=== PATIENT | female | born 1985 | race Caucasian/White ===

== ENCOUNTER 2019-06-08 18:31 | Observation (INO) ==
--- NOTE | 2019-06-08 18:37 | Emergency Department Note ---
Disposition Clinical Impression: Pyelonephritis Disposition: Admitted As Inpatient Condition: Good Time of Disposition: 22:39 General Adult HPI - General Stated complaint: Abdominal Pain Time Seen by Provider: 06/08/19 18:45 Source: patient Mode of arrival: ambulatory Limitations: no limitations Nursing Notes Reviewed: Yes Vital Signs Reviewed: Yes - History of Present Illness HPI Narrative: 34-year-old female presents with fever and abdominal pain for last 3 days. Significant past history of recurrent UTIs, pyelonephritis, gonorrhea, chlamydia. Previous episodes treated with antibiotics Omnicef, Flagyl, Keflex. She also admits to nausea without vomiting, decreased by mouth intake, flank pain, malaise, dizziness. She took [id number]-[id number] medications but that provided no relief. She denied any chest pain, dyspnea, cough, sore throat. Pt Subjective Complaint: Abdominal pain and fever Onset (ago): day(s) (3) Location: abdomen Radiation: back Pain Severity: moderate Pain Scale: 8 Quality: burning Consistency: intermittent Improves with: movement Worsens with: nothing Associated symptoms: Reports: fever/chills, headaches, loss of appetite, nausea/vomiting Treatments Prior to Arrival: NSAID - Related Data Home Medications Medication Instructions Recorded Confirmed Buprenorphine HCl/Naloxone HCl 1 film SL DAILY 06/08/19 06/08/19 [Suboxone 8 mg-2 mg Sl Film] Paroxetine HCl [Paxil] 40 mg PO DAILY 06/08/19 06/08/19 Wellbutrin 06/08/19 06/08/19 Allergies Allergy/AdvReac Type Severity Reaction Status Date / Time No Known Allergies Allergy Verified 04/21/19 19:23 Constitutional: Reports: fever, chills Eyes: Denies: eye pain ENT ED: Denies: ear pain Cardiovascular: Denies: chest pain, palpitations, dyspnea on exertion Respiratory: Reports: cough, dyspnea Gastrointestinal: Reports: abdominal pain, nausea. Denies: vomiting Genitourinary: Reports: as per HPI, dysuria Musculoskeletal: Reports: back pain Integumentary: Denies: rash Neurological: Reports: headache Psychiatric: Reports: anxiety Endocrine: Reports: fatigue Past Medical History - Past Medical History Attestation: Yes The following information was validated with the patient. Source: patient Medical history: Reports: no medical history Surgical history: Reports: non-contributory - Social History Smoking Status: Current every day smoker Smokeless Tobacco Status: No Alcohol use: Reports: none Drug use: Reports: none Physical Exam - General Limitations: no limitations General appearance: alert, anxious, in distress - Head Head exam: atraumatic, normocephalic, normal inspection - Eye Eye exam: Present: normal appearance, EOMI - Expanded Eye Exam Pupils: Left: reactive - ENT ENT exam: normal exam, normal oropharynx, mucous membranes moist - Expanded ENT Exam External ear exam: Present: normal external inspection Nose exam: negative: rhinorrhea Mouth exam: Present: normal external inspection Teeth exam: Present: normal inspection Throat exam: Present: normal inspection - Neck Neck exam: Present: normal inspection, full ROM, trachea midline - Chest Chest inspection: Present: normal inspection, symmetric chest wall rise - Respiratory Respiratory exam: Present: normal lung sounds bilaterally - Cardiovascular Cardiovascular exam: Present: normal rhythm, tachycardia, +S1, +S2 - Abdominal Exam Abdominal exam: Present: tenderness. Absent: distention, guarding, rebound, rigidity, Boyd's sign, Rovsing's sign Abdominal tenderness: Present: diffuse - Extremities Exam Extremities exam: Present: normal inspection, full ROM. Absent: tenderness, pedal edema - Expanded Upper Extremity Exam Shoulder exam: Present: normal inspection, full ROM Arm exam: Present: normal inspection, full ROM Elbow exam: Present: normal inspection, full ROM Forearm/Wrist exam: Present: normal inspection, full ROM Hand exam: Present: normal inspection, full ROM Vascular exam: Normal: capillary refill, radial pulse - Expanded Lower Extremity Exam Hip/Pelvis exam: Present: normal inspection, full ROM Upper leg exam: Present: normal inspection, full ROM Knee exam: Present: normal inspection, full ROM Lower leg exam: Present: normal inspection, full ROM Ankle exam: Present: normal inspection, full ROM Foot/toe exam: Present: normal inspection, full ROM Neurovascular/Tendon exam: Absent: motor deficit, sensory deficit, tendon deficit - Back Exam Back exam: Present: normal inspection, full ROM, CVA tenderness (R), CVA tenderness (L). Absent: tenderness - Neurological Exam Neurological exam: Present: alert, oriented X3 - Expanded Neurological Exam Patient oriented to: Present: person, place, time Coma Scale Eye Opening: Spontaneous Coma Scale Motor Response: Obeys Commands Coma Scale Verbal Response: Oriented Coma Scale Total: 15 - Psychiatric Psychiatric exam: Present: normal affect, normal mood - Skin Skin exam: Present: warm, dry, intact, normal color Course Course Narrative: Patient presents with symptoms concerning for sepsis. She is tachycardic, leukocytosis, UA significant for infection. CT abdomen without contrast confirms polynephritis. Patient continues to be hypotensive after IV ceftriaxone. She does report improvement of symptoms and would prefer to go home. - Reevaluation(s) Reevaluation #1: Patient continues to have a fever of 101F. I will give her a dose of Tylenol. She reports her nausea and overall symptoms have improved. However, vital signs demonstrate hypotension, tachycardia, fever. Patient continues to state that she would rather go home and treat this with oral antibiotics with PCP follow up. I advised her due to symptoms concerning for sepsis, it is highly mu mmended for her to be admitted. Patient expresses understanding and is agreeable. She is to be admitted to inpatient service. Time: 21:26 - Consultations Consultation #1: Admitting hospitalist. Accepted admission. Time: 22:30 Vital Signs Temperature 103.2 F H 06/08/19 18:36 Pulse Rate 115 06/08/19 18:36 Respiratory Rate 20 06/08/19 18:36 Blood Pressure 100/54 06/08/19 18:36 O2 Sat by Pulse Oximetry 99 06/08/19 18:36 Temperature 99.9 F H 06/08/19 21:19 Pulse Rate 100 06/08/19 20:37 Respiratory Rate 23 06/08/19 22:57 Blood Pressure 77/56 06/08/19 22:57 O2 Sat by Pulse Oximetry 97 06/08/19 19:24 Oxygen Delivery Oxygen Delivery Room Air Medical Decision Making - [facility] Narrative Medical decision making narrative: 34-year-old presents with symptoms of fever, nausea, vomiting, abdominal pain. Blood work and CT of the abdomen without contrast consistent for pyelonephritis. Patient received dose of IV Rocephin but continued to have fever of 101F and hypotensive. Patient to be admitted for sepsis 2/2 pyelonephritis. Spoke with admitting hospitalist and has been accepted to inpatient medicine. - Medical Records Medical records reviewed: Yes I reviewed the patient's medical records. - Lab Data Lab results reviewed: Yes I reviewed the patient's lab results. Result diagrams: 06/08/19 18:54 06/08/19 18:58 Lab Results 06/08/19 06/08/1919 Range/Units 18:54 18:57 18:58 WBC 11.2 H (4.3-11.1) K/mcL RBC 3.79 L (3.82-4.97) M/mcL Hgb 12.0 (11.5-15.4) g/dL Hct 36.5 (35.3-44.9) % MCV 96.3 (83.0-100.0) fL MCH 31.7 (28.0-33.3) pg MCHC 32.9 (31.6-35.5) g/dL RDW 12.8 (11.5-14.5) % Plt Count 134 L (140-400) K/mcL MPV 10.1 (9.4-12.4) fL Immature Gran % 0.4 (0-4) % Seg Neutrophils % 79.4 % Lymphocytes % 12.7 % Monocytes % 5.7 % Eosinophils % 1.5 % Basophils % 0.3 % Neutrophils # 8.9 (1.6-8.9) K/mcL Lymphocytes # 1.4 (0.6-4.6) K/mcL Monocytes # 0.6 (0.0-1.3) K/mcL Eosinophils # 0.2 (0.0-0.6) K/mcL Basophils # 0.0 (0.0-0.2) K/mcL PT 11.6 (9.4-12.1) Seconds INR 1.0 APTT 27.5 (26.0-36.0) Seconds Sodium (136-145) mEq/L Potassium (3.5-5.1) mEq/L Chloride (98-107) mEq/L Carbon Dioxide (23-29) mEq/L BUN (6-20) mg/dL Creatinine (0.60-1.20) mg/dL Est GFR ( Amer) (> 60) Est GFR (Non-Af Amer) (> 60) BUN/Creatinine Ratio (6-26) Glucose (70-105) mg/dL Calculated Osmolality (280-300) Lactic Acid 1.3 (0.5-2.2) mmol/L Calcium (8.6-10.3) mg/dL Phosphorus (2.7-4.5) mg/dL Magnesium (1.6-2.6) mg/dL Total Bilirubin (0.3-1.0) mg/dL Direct Bilirubin (0.0-0.2) mg/dL Indirect Bilirubin (0.0-1.2) mg/dL AST (13-39) Units/L ALT (7-52) Units/L Alkaline Phosphatase (34-104) Units/L Troponin I (< 0.04) ng/mL Serum Total Protein (6.4-8.9) g/dL Albumin (3.5-5.7) g/dL Globulin (2.4-3.5) g/dL Albumin/Globulin Ratio (1.1-2.2) Lipase (11-82) Units/L Urine Color (Yellow) Urine Clarity (Clear) Urine pH (5.0-8.0) pH Units Ur Specific [place] (1.010-1.025) Urine Protein (Neg-Trace) mg/dL Urine Glucose (UA) (Normal) mg/dL Urine Ketones (Negative) mg/dL Urine Blood (Negative) Urine Nitrite (Negative) Urine Bilirubin (Negative) Urine Urobilinogen (Normal) mg/dL Ur Leukocyte Esterase (Negative) Urine Microscopic RBC (0-3) per hpf Urine Microscopic WBC (0-3) per hpf Ur Squamous Epith Cells (None-Few) per lpf Urine Bacteria (None-Few) per hpf Hyaline Casts (None-Few) per lpf Ur Culture Indicated? (NO) 06/08/19 06/08/19 Range/Units 18:58 19:30 WBC (4.3-11.1) K/mcL RBC (3.82-4.97) M/mcL Hgb (11.5-15.4) g/dL Hct (35.3-44.9) % MCV (83.0-100.0) fL MCH (28.0-33.3) pg MCHC (31.6-35.5) g/dL RDW (11.5-14.5) % Plt Count (140-400) K/mcL MPV (9.4-12.4) fL Immature Gran % (0-4) % Seg Neutrophils % % Lymphocytes % % Monocytes % % Eosinophils % % Basophils % % Neutrophils # (1.6-8.9) K/mcL Lymphocytes # (0.6-4.6) K/mcL Monocytes # (0.0-1.3) K/mcL Eosinophils # (0.0-0.6) K/mcL Basophils # (0.0-0.2) K/mcL PT (9.4-12.1) Seconds INR APTT (26.0-36.0) Seconds Sodium 137 (136-145) mEq/L Potassium 3.3 L (3.5-5.1) mEq/L Chloride 103 (98-107) mEq/L Carbon Dioxide 26 (23-29) mEq/L BUN 13 (6-20) mg/dL Creatinine 0.67 (0.60-1.20) mg/dL Est GFR ( Amer) > 60 (> 60) Est GFR (Non-Af Amer) > 60 (> 60) BUN/Creatinine Ratio 19 (6-26) Glucose 91 (70-105) mg/dL Calculated Osmolality 284 (280-300) Lactic Acid (0.5-2.2) mmol/L Calcium 8.4 L (8.6-10.3) mg/dL Phosphorus 2.3 L (2.7-4.5) mg/dL Magnesium 1.6 (1.6-2.6) mg/dL Total Bilirubin 0.4 (0.3-1.0) mg/dL Direct Bilirubin 0.1 (0.0-0.2) mg/dL Indirect Bilirubin 0.3 (0.0-1.2) mg/dL AST 19 (13-39) Units/L ALT 17 (7-52) Units/L Alkaline Phosphatase 55 (34-104) Units/L Troponin I < 0.03 (< 0.04) ng/mL Serum Total Protein 6.3 L (6.4-8.9) g/dL Albumin 3.7 (3.5-5.7) g/dL Globulin 2.6 (2.4-3.5) g/dL Albumin/Globulin Ratio 1.4 (1.1-2.2) Lipase 9 L (11-82) Units/L Urine Color Yellow (Yellow) Urine Clarity Turbid A (Clear) Urine pH 5.5 (5.0-8.0) pH Units Ur Specific [place] 1.022 (1.010-1.025) Urine Protein 100 H (Neg-Trace) mg/dL Urine Glucose (UA) Normal (Normal) mg/dL Urine Ketones Negative (Negative) mg/dL Urine Blood Large H (Negative) Urine Nitrite Positive A (Negative) Urine Bilirubin Negative (Negative) Urine Urobilinogen Normal (Normal) mg/dL Ur Leukocyte Esterase Large H (Negative) Urine Microscopic RBC 5-15 H (0-3) per hpf Urine Microscopic WBC TNTC H (0-3) per hpf Ur Squamous Epith Cells Many H (None-Few) per lpf Urine Bacteria Many H (None-Few) per hpf Hyaline Casts None Seen (None-Few) per lpf Ur Culture Indicated? YES A (NO) - Radiology Data Radiology results reviewed: Yes I reviewed the patient's radiology results. - EKG Data EKG #1 EKG attestation: Yes I reviewed and interpreted this EKG. EKG results narrative: Sinus tachycardia heart rate 114, QT 277, right atrial enlargement EKG shows normal: sinus rhythm Rate: tachycardia When compared to previous EKG there are: no significant changes
[2019-06-08] MEDS ORDERED: 0.9 % Sodium Chloride 1,000 ML IVC ONE ×3 (18:54→23:33)
[2019-06-08] MEDS ORDERED: Ketorolac 15 MG/ML VIAL IVP ONE (18:57)
[2019-06-08 19:20] LABS: Basophils % 0.3 %; Eosinophils # 0.2 K/mcL (0.0-0.6); Eosinophils % 1.5 %; Hematocrit 36.5 % (35.3-44.9); Immature Granulocytes % 0.4 % (0-4); Lymphocytes # 1.4 K/mcL (0.6-4.6); Lymphocytes % 12.7 %; Mean Corpuscular HGB Conc 32.9 g/dL (31.6-35.5); Mean Corpuscular Hemoglobin 31.7 pg (28.0-33.3); Mean Corpuscular Volume 96.3 fL (83.0-100.0); Mean Platelet Volume 10.1 fL (9.4-12.4); Monocytes # 0.6 K/mcL (0.0-1.3); Monocytes % 5.7 %; Neutrophils # 8.9 K/mcL (1.6-8.9); Platelet Count 134 K/mcL (140-400); Red Blood Count 3.79 M/mcL (3.82-4.97); Red Cell Distribution Width 12.8 % (11.5-14.5); Segmented Neutrophils % 79.4 %; White Blood Count 11.2 K/mcL (4.3-11.1)
[2019-06-08 19:27] LABS: Prothrombin Time 11.6 Seconds (9.4-12.1)
[2019-06-08 19:30] LABS: Activated Partial Thrombo Time 27.5 Seconds (26.0-36.0)
[2019-06-08] MEDS ORDERED: Ondansetron 4 MG/2 ML VIAL IVP ONE (19:32)
[2019-06-08 19:42] LABS: Alanine Aminotransferase 17 Units/L (7-52); Albumin 3.7 g/dL (3.5-5.7); Albumin/Globulin Ratio 1.4 (1.1-2.2); Alkaline Phosphatase 55 Units/L (34-104); Aspartate Amino Transferase 19 Units/L (13-39); BUN/Creatinine Ratio 19 (6-26); Bilirubin,Direct 0.1 mg/dL (0.0-0.2); Bilirubin,Indirect 0.3 mg/dL (0.0-1.2); Bilirubin,Total 0.4 mg/dL (0.3-1.0); Blood Urea Nitrogen 13 mg/dL (6-20); Calcium 8.4 mg/dL (8.6-10.3); Carbon Dioxide 26 mEq/L (23-29); Chloride 103 mEq/L (98-107); Globulin 2.6 g/dL (2.4-3.5); Glucose 91 mg/dL (70-105); Lipase 9 Units/L (11-82); Magnesium 1.6 mg/dL (1.6-2.6); Osmolality,Calculated 284 (280-300); Phosphorous 2.3 mg/dL (2.7-4.5); Potassium 3.3 mEq/L (3.5-5.1); Sodium 137 mEq/L (136-145); Total Protein 6.3 g/dL (6.4-8.9); Troponin I < 0.03 ng/mL (< 0.04); eGFR For African Americans > 60 (> 60); eGFR For Non-African Americans > 60 (> 60)
[2019-06-08 19:49] LABS: Bilirubin,Urine Negative (Negative); Blood,Urine Large (Negative); Clarity,Urine Turbid (Clear); Color,Urine Yellow (Yellow); Glucose,Urine (UA) Normal (Normal); Ketones,Urine Negative (Negative); Leukocyte Esterase,Urine Large (Negative); Nitrite,Urine Positive (Negative); PH,Urine 5.5 pH Units (5.0-8.0); Protein,Urine 100 mg/dL (Neg-Trace); Specific Gravity,Urine 1.022 (1.010-1.025); Urobilinogen,Urine Normal (Normal)
[2019-06-08 19:53] LABS: Bacteria,Urine Many per hpf (None-Few); Hyaline Casts,Urine None Seen per lpf (None-Few); Squamous Epithelial Cell,Urine Many per lpf (None-Few); WBC,Urine TNTC per hpf (0-3)
[2019-06-08] MEDS ORDERED: cefTRIAXone 1,000 MG in Water for inj. (sterile) 10 ML IVP ONE (20:06)
--- NOTE | 2019-06-08 20:17 | Emergency Department Note ---
Disposition Clinical Impression: Pyelonephritis Disposition: Admitted As Inpatient Condition: Good Time of Disposition: 22:39 General Adult HPI - General Chief complaint: ED Abdominal Pain Stated complaint: Abdominal Pain Time Seen by Provider: 06/08/19 18:45 Source: patient Mode of arrival: ambulatory Limitations: no limitations - History of Present Illness Pain Scale: 10 - Related Data Home Medications Medication Instructions Recorded Confirmed Bupropion HCl [Wellbutrin Xl] 300 mg PO DAILY 06/08/19 06/09/19 Paroxetine HCl [Paxil] 40 mg PO DAILY 06/08/19 06/08/19 Buprenorphine HCl/Naloxone HCl 2 tab SL DAILY 06/09/19 06/09/19 [Buprenorphin-Naloxon 8-2 mg Sl] Allergies Allergy/AdvReac Type Severity Reaction Status Date / Time No Known Allergies Allergy Verified 06/09/19 13:40 Past Medical History - Past Medical History Medical history: Reports: no medical history Surgical history: Reports: non-contributory Psychiatric history: Reports: no psych history - Social History Smoking Status: Current every day smoker Smokeless Tobacco Status: No Alcohol use: Reports: none Drug use: Reports: none Physical Exam - General Limitations: no limitations General appearance: alert, in no apparent distress Course Vital Signs Temperature 103.2 F H 06/08/19 18:36 Pulse Rate 115 06/08/19 18:36 Respiratory Rate 20 06/08/19 18:36 Blood Pressure 100/54 06/08/19 18:36 O2 Sat by Pulse Oximetry 99 06/08/19 18:36 Temperature 98.7 F 06/11/19 04:30 Pulse Rate 83 06/11/19 04:30 Respiratory Rate 15 06/11/19 04:30 Blood Pressure 111/79 06/11/19 04:30 O2 Sat by Pulse Oximetry 97 06/11/19 04:30 Oxygen Delivery Oxygen Delivery Room Air Medical Decision Making - Lab Data Result diagrams: 06/10/19 06:03 06/10/19 06:03 Lab Results 06/08/19 06/08/19 06/08/19 Range/Units 18:54 18:57 18:58 WBC 11.2 H (4.3-11.1) K/mcL RBC 3.79 L (3.82-4.97) M/mcL Hgb 12.0 (11.5-15.4) g/dL Hct 36.5 (35.3-44.9) % MCV 96.3 (83.0-100.0) fL MCH 31.7 (28.0-33.3) pg MCHC 32.9 (31.6-35.5) g/dL RDW 12.8 (11.5-14.5) % Plt Count 134 L (140-400) K/mcL MPV 10.1 (9.4-12.4) fL Immature Gran % 0.4 (0-4) % Seg Neutrophils % 79.4 % Lymphocytes % 12.7 % Monocytes % 5.7 % Eosinophils % 1.5 % Basophils % 0.3 % Neutrophils # 8.9 (1.6-8.9) K/mcL Lymphocytes # 1.4 (0.6-4.6) K/mcL Monocytes # 0.6 (0.0-1.3) K/mcL Eosinophils # 0.2 (0.0-0.6) K/mcL Basophils # 0.0 (0.0-0.2) K/mcL PT 11.6 (9.4-12.1) Seconds INR 1.0 APTT 27.5 (26.0-36.0) Seconds Sodium (136-145) mEq/L Potassium (3.5-5.1) mEq/L Chloride (98-107) mEq/L Carbon Dioxide (23-29) mEq/L BUN (6-20) mg/dL Creatinine (0.60-1.20) mg/dL Est GFR ( Amer) (> 60) Est GFR (Non-Af Amer) (> 60) BUN/Creatinine Ratio (6-26) Glucose (70-105) mg/dL Calculated Osmolality (280-300) Lactic Acid 1.3 (0.5-2.2) mmol/L Calcium (8.6-10.3) mg/dL Phosphorus (2.7-4.5) mg/dL Magnesium (1.6-2.6) mg/dL Total Bilirubin (0.3-1.0) mg/dL Direct Bilirubin (0.0-0.2) mg/dL Indirect Bilirubin (0.0-1.2) mg/dL AST (13-39) Units/L ALT (7-52) Units/L Alkaline Phosphatase (34-104) Units/L Troponin I (< 0.04) ng/mL Serum Total Protein (6.4-8.9) g/dL Albumin (3.5-5.7) g/dL Globulin (2.4-3.5) g/dL Albumin/Globulin Ratio (1.1-2.2) Lipase (11-82) Units/L Urine Color (Yellow) Urine Clarity (Clear) Urine pH (5.0-8.0) pH Units Ur Specific [place] (1.010-1.025) Urine Protein (Neg-Trace) mg/dL Urine Glucose (UA) (Normal) mg/dL Urine Ketones (Negative) mg/dL Urine Blood (Negative) Urine Nitrite (Negative) Urine Bilirubin (Negative) Urine Urobilinogen (Normal) mg/dL Ur Leukocyte Esterase (Negative) Urine Microscopic RBC (0-3) per hpf Urine Microscopic WBC (0-3) per hpf Ur Squamous Epith Cells (None-Few) per lpf Urine Bacteria (None-Few) per hpf Hyaline Casts (None-Few) per lpf Ur Culture Indicated? (NO) 06/08/19 06/08/19 Range/Units 18:58 19:30 WBC (4.3-11.1) K/mcL RBC (3.82-4.97) M/mcL Hgb (11.5-15.4) g/dL Hct (35.3-44.9) % MCV (83.0-100.0) fL MCH (28.0-33.3) pg MCHC (31.6-35.5) g/dL RDW (11.5-14.5) % Plt Count (140-400) K/mcL MPV (9.4-12.4) fL Immature Gran % (0-4) % Seg Neutrophils % % Lymphocytes % % Monocytes % % Eosinophils % % Basophils % % Neutrophils # (1.6-8.9) K/mcL Lymphocytes # (0.6-4.6) K/mcL Monocytes # (0.0-1.3) K/mcL Eosinophils # (0.0-0.6) K/mcL Basophils # (0.0-0.2) K/mcL PT (9.4-12.1) Seconds INR APTT (26.0-36.0) Seconds Sodium 137 (136-145) mEq/L Potassium 3.3 L (3.5-5.1) mEq/L Chloride 103 (98-107) mEq/L Carbon Dioxide 26 (23-29) mEq/L BUN 13 (6-20) mg/dL Creatinine 0.67 (0.60-1.20) mg/dL Est GFR ( Amer) > 60 (> 60) Est GFR (Non-Af Amer) > 60 (> 60) BUN/Creatinine Ratio 19 (6-26) Glucose 91 (70-105) mg/dL Calculated Osmolality 284 (280-300) Lactic Acid (0.5-2.2) mmol/L Calcium 8.4 L (8.6-10.3) mg/dL Phosphorus 2.3 L (2.7-4.5) mg/dL Magnesium 1.6 (1.6-2.6) mg/dL Total Bilirubin 0.4 (0.3-1.0) mg/dL Direct Bilirubin 0.1 (0.0-0.2) mg/dL Indirect Bilirubin 0.3 (0.0-1.2) mg/dL AST 19 (13-39) Units/L ALT 17 (7-52) Units/L Alkaline Phosphatase 55 (34-104) Units/L Troponin I < 0.03 (< 0.04) ng/mL Serum Total Protein 6.3 L (6.4-8.9) g/dL Albumin 3.7 (3.5-5.7) g/dL Globulin 2.6 (2.4-3.5) g/dL Albumin/Globulin Ratio 1.4 (1.1-2.2) Lipase 9 L (11-82) Units/L Urine Color Yellow (Yellow) Urine Clarity Turbid A (Clear) Urine pH 5.5 (5.0-8.0) pH Units Ur Specific [place] 1.022 (1.010-1.025) Urine Protein 100 H (Neg-Trace) mg/dL Urine Glucose (UA) Normal (Normal) mg/dL Urine Ketones Negative (Negative) mg/dL Urine Blood Large H (Negative) Urine Nitrite Positive A (Negative) Urine Bilirubin Negative (Negative) Urine Urobilinogen Normal (Normal) mg/dL Ur Leukocyte Esterase Large H (Negative) Urine Microscopic RBC 5-15 H (0-3) per hpf Urine Microscopic WBC TNTC H (0-3) per hpf Ur Squamous Epith Cells Many H (None-Few) per lpf Urine Bacteria Many H (None-Few) per hpf Hyaline Casts None Seen (None-Few) per lpf Ur Culture Indicated? YES A (NO) Attestation Statement - Attestation Attestation: I examined this patient and my medical decision-making was reviewed with the Resident Physician. I agree with the documented findings, disposition and treatment plan as described except to the extent set forth below. Patient 34-year-old female presents January from a chief complaint of flank pain and fever and dysuria. The patient states she has recently been treated for urinary tract infection was continued to still have symptoms. The patient states spiked a temperature states she feels generally unwell and feels as though she is Not getting any better. Physical exam the patient is awake alert no acute distress patient is mildly tachycardic was febrile patient does have flank pain to palpation. Medical decision management patient's case was most likely consistent with pyelonephritis urinalysis showed evidence of urinary tract infection and CT scan showed no evidence of obstructive uropathy but did show evidence of fat stranding around the kidney which be consistent with pyelonephritis. After hydration and IV antibiotics patient continued to have tachycardia and blood pressure was on the lower end of normal. His felt given the patient's pitcher of early sepsis and given the source pyelonephritis the patient should be admitted to the hospital the case was discussed with the hospitalist the patient be except to the hospitalist service
[2019-06-08] MEDS ORDERED: Acetaminophen 325 MG TABLET PO ONE (21:22)
[2019-06-08] MEDS ORDERED: Acetaminophen 325 MG TABLET PO PRN (23:05)
[2019-06-08] MEDS ORDERED: Ondansetron 4 MG/2 ML VIAL IVP PRN (23:05)
[2019-06-08] MEDS ORDERED: Ketorolac 30 MG/ML VIAL IVP PRN (23:05)
[2019-06-08] MEDS ORDERED: Naloxone 0.4 MG/ML INJ IVP PRN (23:05)
[2019-06-08] MEDS: Ringers Solution, Lactated 1,000 ML IVC SCH (23:38)
--- NOTE | 2019-06-08 23:40 | Internal Med History&Physical ---
Date of Encounter: 06/08/19 Time of Encounter: 23:38 Internal Medicine - H&P: HPI Chief complaint: abdominal pain Admitted From: Home Plans for Post Hospital Care: Home History of present illness: Amena Henriquez is a 34-year-old woman with a history of opiate dependence currently on Suboxone as well as mood disorder who presents emergency room complaining of 3 days of chills, subjective fever, lower abdominal pain and lower back pain accompanied by nausea, vomiting and severe dysuria. She has a history of UTIs in the past with pyelonephritis as well as vulvovaginitis. On arrival here she was febrile at 103.2F and tachycardic. Lab work revealed a minimal leukocyte elevation of 11.2, potassium 3.3 and urinalysis remarkable for nitrites, large leukocyte esterase and significant pyuria. Abdomen CT showed stranding along the margins of the right kidney without hydronephrosis. She was started on fluid resuscitation and empiric antibiotics. She is admitted for further care. Vitals: Reviewed General: Well-developed gentleman lying in bed, notably asthenic with malaise. Skin: Warm and flushed. HEENT: Moist mucous membranes. No conjunctivae pallor. Neck: No lymphadenopathy. No JVD. No carotid bruits. No palpable thyroid. Chest: Normal thoracic expansion. Normal breath sounds. Clear to auscultation. Heart: Normal S1 & S2; rhythmic. No rubs or murmurs. Abdomen: Non-distended, soft and tender to palpation in the inferior hemiabdomen and right lumbar region. Extremities: No clubbing, cyanosis or edema. No calf tenderness. Normal distal pulses. Neurological: Awake, alert and oriented to person, place and time. No focal deficits. Psych: Affect appropriate. Assessment/Plan 1. Severe sepsis secondary to urinary tract infection: As evidenced by leukocytosis, fever, tachycardia and hypotensive states that has somewhat responded to fluid resuscitation. We will ensure blood and urine cultures have been collected. Continue maintenance fluids and empiric ceftriaxone daily. Follow culture data accordingly. 2. Substance use disorder: Continue Suboxone. 3. Mood disorder: Resume antidepressants and anxiolytics accordingly. 4. DVT prophylaxis: Antiembolic stockings ordered. Past Med Surg Social Fam HX - Past Medical History Medical history: no medical history Psychiatric history: no psych history - Past Surgical History Surgical History: non-contributory Additional surgical history: tubal ligation - Social History Smoking Status: Current every day smoker Smokeless Tobacco Status: No Alcohol use: none Drug use: none Internal Medicine - H&P: Meds Buprenorphine HCl/Naloxone HCl [Suboxone 8 mg-2 mg Sl Film] 1 film SL DAILY 06/08/19 [History] Paroxetine HCl [Paxil] 40 mg PO DAILY 06/08/19 [History] Wellbutrin 06/08/19 [History] Allergy/AdvReac Type Severity Reaction Status Date / Time No Known Allergies Allergy Verified 04/21/19 19:23 All Systems PM: A 10-system review of systems was performed and is negative for pertinent findings except as documented above in the HPI. Family history reviewed and found non-contributory. - Constitutional Vitals: Temp Pulse Resp BP Pulse Ox 98.5 F 81 15 89/54 97 06/08/19 23:32 06/08/19 23:32 06/08/19 23:32 06/08/19 23:32 06/08/19 23:32 Exam: . Internal Med - H&P Results - Labs CBC & Chem 7: 06/08/19 18:54 06/08/19 18:58 Labs: Short CBC 06/08/19 Range/Units 18:54 WBC 11.2 H (4.3-11.1) K/mcL Hgb 12.0 (11.5-15.4) g/dL Hct 36.5 (35.3-44.9) % Plt Count 134 L (140-400) K/mcL Neutrophils # 8.9 (1.6-8.9) K/mcL BMP 06/08/19 18:58 Sodium 137 Potassium 3.3 L Chloride 103 Carbon Dioxide 26 BUN 13 Creatinine 0.67 Glucose 91 Calcium 8.4 L Cardiac Enzymes 06/08/19 Range/Units 18:58 Troponin I < 0.03 (< 0.04) ng/mL Liver Function 06/08/19 Range/Units 18:58 Total Bilirubin 0.4 (0.3-1.0) mg/dL Direct Bilirubin 0.1 (0.0-0.2) mg/dL AST 19 (13-39) Units/L ALT 17 (7-52) Units/L Alkaline Phosphatase 55 (34-104) Units/L Albumin 3.7 (3.5-5.7) g/dL Urine 08/04/19 Range/Units 19:30 Urine Color Yellow (Yellow) Urine Clarity Turbid A (Clear) Urine pH 5.5 (5.0-8.0) pH Units Ur Specific [place] 1.022 (1.010-1.025) Urine Protein 100 H (Neg-Trace) mg/dL Urine Glucose (UA) Normal (Normal) mg/dL - Impressions ITS Impressions Chest X-Ray 06/08/19 18:55 IMPRESSION: No acute cardiopulmonary disease. D/ / Igor Silvestre MD / Igor Silvestre MD Interpreting Provider: Igor Silvestre MD Abdomen/Pelvis CT 06/08/19 18:56 IMPRESSION: Cholelithiasis Stranding along the margins of the right kidney without hydronephrosis. This is indeterminate and could be related to recently passed stone, however there is no stone in the ureter or the bladder. Pyelonephritis would be difficult to exclude without postcontrast imaging. Minimal free fluid in the pelvis which is not unusual in a young female patient D/ / Aristides Varela / Aristides Varela Interpreting Provider: Aristides Varela - Time Spent With Patient Total time spent is greater than 50% in coordination of care (as documented) at patient's floor/unit and/or counseling patient:
[2019-06-09 05:45] LABS: Basophils % 0.3 %; Eosinophils # 0.2 K/mcL (0.0-0.6); Eosinophils % 2.6 %; Hematocrit 41.9 % (35.3-44.9); Hemoglobin 12.4 g/dL (11.5-15.4); Immature Granulocytes % 0.2 % (0-4); Lymphocytes # 1.8 K/mcL (0.6-4.6); Lymphocytes % 31.7 %; Mean Corpuscular HGB Conc 29.6 g/dL (31.6-35.5); Mean Corpuscular Hemoglobin 30.9 pg (28.0-33.3); Mean Platelet Volume 10.3 fL (9.4-12.4); Monocytes # 0.6 K/mcL (0.0-1.3); Monocytes % 10.3 %; Neutrophils # 3.2 K/mcL (1.6-8.9); Platelet Count 117 K/mcL (140-400); Red Blood Count 4.01 M/mcL (3.82-4.97); Red Cell Distribution Width 12.8 % (11.5-14.5); Segmented Neutrophils % 54.9 %; White Blood Count 5.8 K/mcL (4.3-11.1)
[2019-06-09 05:52] LABS: Mean Corpuscular Volume 104.5 fL (83.0-100.0)
[2019-06-09 06:02] LABS: BUN/Creatinine Ratio 17 (6-26); Blood Urea Nitrogen 11 mg/dL (6-20); Calcium 7.9 mg/dL (8.6-10.3); Carbon Dioxide 25 mEq/L (23-29); Chloride 108 mEq/L (98-107); Glucose 98 mg/dL (70-105); Osmolality,Calculated 293 (280-300); Potassium 3.8 mEq/L (3.5-5.1); Sodium 142 mEq/L (136-145); eGFR For African Americans > 60 (> 60); eGFR For Non-African Americans > 60 (> 60)
[2019-06-09 08:30] LABS: Chlamydia Trachomatis DNA Ur NOT DETECTED (Not Detect)
[2019-06-09] MEDS: Ringers Solution, Lactated 1,000 ML IVC SCH (08:40)
[2019-06-09] MEDS: cefTRIAXone 1,000 MG in Water for inj. (sterile) 10 ML IVPB SCH (08:40)
[2019-06-09] MEDS: Nicotine 14 MG PATCH.TD24 TD SCH (08:41)
[2019-06-09] MEDS ORDERED: (Suboxone 8 Mg-2 Mg SL) SL SCH (09:00)
[2019-06-09] MEDS: *HR* OxyCODONE Immed Rel 5 MG TABLET PO PRN (14:01)
[2019-06-09] MEDS: traMADol 50 MG TABLET PO PRN (18:49)
--- NOTE | 2019-06-09 19:49 | Internal Med Progress Note ---
Hospitalist Progress Note - Encounter Date of Encounter: 06/09/19 Time of Encounter: 09:45 - Subjective Interval History: Ms Henriquez was concern about not getting her Suboxone had a quick treatment plan discussion with the patient and her nurse. She was educated that the Suboxone would blunt any effect of opiate analgesia given that she is presenting with pyelonephritis with flank pain when unable to control her pain if she continues Suboxone. She reluctantly agreed to treatment plan GEN: Reports fever, chills or malaise HEENT: Denies headache blurriness, or dysphagia RESP: Denies SOB or cough CV: Denies chest pain or palpitations GI: Denies Nausea, vomiting, diarrhea or constipation Reviewed current in hospital medications with modifications see orders Reviewed Routine labs - Exam Vitals: Temp Pulse Resp BP Pulse Ox 102.8 F H 100 14 124/78 94 06/09/19 18:45 06/09/19 18:45 06/09/19 18:45 06/09/19 18:45 06/09/19 18:45 Exam: GEN: Mildly distressed female, A&O x 3, Pleasant and conversant SKIN: [place] warm acyanotic not jaundice HEART: RRR, no murmurs LUNGS: CTA no wheeze or crackles, overall non labored ABDOMEN; Soft, non tender or distended, BS x 4 normactive EXT: No LE edema, Pedal pulses 1+, radial pulses 2+ PSYCH: Mood and affect is appropriate - Assessment and Plan (1) Pyelonephritis Current Visit: Yes Status: Acute Assessment and Plan: Urine and blood cultures are pending patient remains febrile although leukocytosis is resolved, continue ceftriaxone and await culture and sensitivity. Patient admits to narcotic analgesia control for her pain. (2) Substance use disorder Current Visit: Yes Status: Acute Assessment and Plan: Reluctantly agreed to hold in Suboxone while she is treated for her flank pain (3) Depression Current Visit: Yes Status: Acute Assessment and Plan: Continue paroxetine and bupropion (4) Cholelithiasis Current Visit: Yes Status: Acute Assessment and Plan: Incidental finding on CT imaging she was notified she is otherwise asymptomatic DVT Prophylaxis: Continue heparin subcutaneous - Time Spent with Patient Total time spent is greater than 50% in coordination of care (as documented) at patient's floor/unit and/or counseling patient: Internal Medicine: Result - Labs CBC & Chem 7: 06/09/19 05:11 06/09/19 05:11 Labs: Short CBC 06/09/19 Range/Units 05:11 WBC 5.8 (4.3-11.1) K/mcL Hgb 12.4 (11.5-15.4) g/dL Hct 41.9 (35.3-44.9) % Plt Count 117 L (140-400) K/mcL Neutrophils # 3.2 (1.6-8.9) K/mcL BMP 06/09/19 05:11 Sodium 142 Potassium 3.8 Chloride 108 H Carbon Dioxide 25 BUN 11 Creatinine 0.65 Glucose 98 Calcium 7.9 L Urine 06/08/19 Range/Units 19:30 Urine Color Yellow (Yellow) Urine Clarity Turbid A (Clear) Urine pH 5.5 (5.0-8.0) pH Units Ur Specific [place] 1.022 (1.010-1.025) Urine Protein 100 H (Neg-Trace) mg/dL Urine Glucose (UA) Normal (Normal) mg/dL - ABG Interpretation ABG results: PT/INR, D-dimer PT 11.6 Seconds (9.4-12.1) 06/08/19 18:58 - Impressions Impressions Chest X-Ray 06/08/19 18:55 IMPRESSION: No acute cardiopulmonary disease. D/ / Igor Silvestre MD / Igor Silvestre MD Interpreting Provider: Igor Silvestre MD Abdomen/Pelvis CT 06/08/19 18:56 IMPRESSION: Cholelithiasis Stranding along the margins of the right kidney without hydronephrosis. This is indeterminate and could be related to recently passed stone, however there is no stone in the ureter or the bladder. Pyelonephritis would be difficult to exclude without postcontrast imaging. Minimal free fluid in the pelvis which is not unusual in a young female patient D/ / Aristides Varela / Aristides Varela Interpreting Provider: Aristides Varela Consult Discharge Plan - Plan (3) Depression Qualifiers: Depression Type: other depression Qualified Code(s): F32.89 - Other specified depressive episodes
[2019-06-09] MEDS: *HR* Heparin 5,000 UNIT/ML VIAL SQ SCH (22:03)
[2019-06-10] MEDS: *HR* Heparin 5,000 UNIT/ML VIAL SQ SCH ×3 (05:12→20:25)
[2019-06-10] MEDS: *HR* OxyCODONE Immed Rel 5 MG TABLET PO PRN ×2 (05:13→20:24)
[2019-06-10 06:27] LABS: Basophils % 0.2 %; Eosinophils # 0.1 K/mcL (0.0-0.6); Eosinophils % 2.2 %; Hemoglobin 11.9 g/dL (11.5-15.4); Immature Granulocytes % 0.3 % (0-4); Lymphocytes # 1.5 K/mcL (0.6-4.6); Lymphocytes % 22.8 %; Mean Corpuscular HGB Conc 33.1 g/dL (31.6-35.5); Mean Corpuscular Hemoglobin 31.4 pg (28.0-33.3); Monocytes # 0.8 K/mcL (0.0-1.3); Platelet Count 138 K/mcL (140-400); Red Blood Count 3.79 M/mcL (3.82-4.97); Red Cell Distribution Width 12.5 % (11.5-14.5); Segmented Neutrophils % 62.5 %; White Blood Count 6.4 K/mcL (4.3-11.1)
--- NOTE | 2019-06-10 06:33 | Electrocardiograph Report ---
[facility] Test Date: 2019-06-08 Pat Name: Amena Henriquez Department: [id number] Room: 3A46 Gender: F [employer]: : [id number] Requested By: Randy Trevizo Order Number: [id number] Reading MD: Jose Alberto Chambers Measurements Intervals [place] Rate: 114 P: 76 NV: 123 QRS: 80 QRSD: 82 T: 11 QT: 277 QTc: 382 Interpretive Statements Sinus tachycardia Electronically Signed On 06-10-2019 6:31:50 EDT by Jose Alberto Chambers
[2019-06-10 06:46] LABS: BUN/Creatinine Ratio 19 (6-26); Blood Urea Nitrogen 9 mg/dL (6-20); Calcium 8.5 mg/dL (8.6-10.3); Carbon Dioxide 26 mEq/L (23-29); Chloride 106 mEq/L (98-107); Glucose 130 mg/dL (70-105); Magnesium 1.8 mg/dL (1.6-2.6); Osmolality,Calculated 284 (280-300); Potassium 3.4 mEq/L (3.5-5.1); Sodium 137 mEq/L (136-145); eGFR For African Americans > 60 (> 60); eGFR For Non-African Americans > 60 (> 60)
[2019-06-10] MEDS: cefTRIAXone 1,000 MG in Water for inj. (sterile) 10 ML IVPB SCH (07:30)
[2019-06-10] MEDS: Nicotine 14 MG PATCH.TD24 TD SCH (07:30)
[2019-06-10] MEDS: BuPROPion XL (24 HR) 150 MG TABLET PO SCH (07:31)
--- NOTE | 2019-06-10 17:10 | Internal Med Progress Note ---
Hospitalist Progress Note - Encounter Date of Encounter: 06/10/19 Time of Encounter: 11:25 - Subjective Interval History: Ms Henriquez urine culture revealed gram negative rods. She reports some mild improvement in her abdominal pain controlled with nacotic analgesia GEN: Denies fever, chills or malaise HEENT: Denies headache blurriness, or dysphagia RESP: Denies SOB or cough CV: Denies chest pain or palpitations GI: Denies Nausea, vomiting, diarrhea or constipation Reviewed current in hospital medications with modifications see orders Reviewed Routine labs - Exam Vitals: Temp Pulse Resp BP Pulse Ox 98.5 F 85 16 100/65 95 06/10/19 14:53 06/10/19 14:53 06/10/19 14:53 06/10/19 14:53 06/10/19 14:53 Exam: GEN: NAD, A&O x 3, Pleasant and conversant SKIN: [place] warm acyanotic not jaundice HEART: RRR, no murmurs LUNGS: CTA no wheeze or crackles, overall non labored ABDOMEN; Soft, non tender or distended, BS x 4 normactive EXT: No LE edema, Pedal pulses 1+, radial pulses 2+ PSYCH: Mood and affect is appropriate - Assessment and Plan (1) Pyelonephritis Current Visit: Yes Status: Acute Assessment and Plan: Urine and blood cultures are pending patient is now afebrile and no le ukocytosis continue ceftriaxone and await culture and sensitivity. Patient admits to narcotic analgesia control for her pain. (2) Substance use disorder Current Visit: Yes Status: Acute Assessment and Plan: Reluctantly agreed to hold in Suboxone while she is treated for her flank pain (3) Depression Current Visit: Yes Status: Acute Assessment and Plan: Continue paroxetine and bupropion (4) Cholelithiasis Current Visit: Yes Status: Acute Assessment and Plan: Incidental finding on CT imaging she was notified she is otherwise asymptomatic (5) Hypokalemia Current Visit: Yes Status: Acute Assessment and Plan: Supplement orally DVT Prophylaxis: Heparin anticipate discharge tomorrow once sensitivities available - Time Spent with Patient Total time spent is greater than 50% in coordination of care (as documented) at patient's floor/unit and/or counseling patient: Internal Medicine: Result - Labs CBC & Chem 7: 06/10/19 06:03 06/10/19 06:03 Labs: Short CBC 06/10/19 Range/Units 06:03 WBC 6.4 (4.3-11.1) K/mcL Hgb 11.9 (11.5-15.4) g/dL Hct 36.0 (35.3-44.9) % Plt Count 138 L (140-400) K/mcL Neutrophils # 4.0 (1.6-8.9) K/mcL BMP 06/10/19 06:03 Sodium 137 Potassium 3.4 L Chloride 106 Carbon Dioxide 26 BUN 9 Creatinine 0.48 L Glucose 130 H Calcium 8.5 L - ABG Interpretation ABG results: PT/INR, D-dimer PT 11.6 Seconds (9.4-12.1) 06/08/19 18:58 Consult Discharge Plan - Plan Referrals: NONE,PCP [Primary Care Provider] - ___ (3) Depression Qualifiers: Depression Type: other depression Qualified Code(s): F32.89 - Other specified depressive episodes
[2019-06-11] MEDS: *HR* Heparin 5,000 UNIT/ML VIAL SQ SCH (05:26)
[2019-06-11] MEDS: *HR* OxyCODONE Immed Rel 5 MG TABLET PO PRN (05:30)
[2019-06-11 07:05] LABS: Eosinophils % 2.9 %; Hemoglobin 11.9 g/dL (11.5-15.4); Immature Granulocytes % 0.4 % (0-4); Lymphocytes % 30.3 %; Mean Corpuscular HGB Conc 32.2 g/dL (31.6-35.5); Mean Corpuscular Hemoglobin 30.7 pg (28.0-33.3); Mean Corpuscular Volume 95.6 fL (83.0-100.0); Mean Platelet Volume 10.4 fL (9.4-12.4); Monocytes % 9.8 %; Platelet Count 140 K/mcL (140-400); Red Blood Count 3.87 M/mcL (3.82-4.97); Red Cell Distribution Width 12.4 % (11.5-14.5); Segmented Neutrophils % 56.2 %; White Blood Count 5.2 K/mcL (4.3-11.1)
[2019-06-11 07:06] LABS: Basophils % 0.4 %; Eosinophils # 0.2 K/mcL (0.0-0.6); Lymphocytes # 1.6 K/mcL (0.6-4.6); Monocytes # 0.5 K/mcL (0.0-1.3); Neutrophils # 2.9 K/mcL (1.6-8.9)
[2019-06-11 07:11] VITALS: BP 114/76
[2019-06-11 07:31] LABS: BUN/Creatinine Ratio 21 (6-26); Blood Urea Nitrogen 10 mg/dL (6-20); Calcium 8.8 mg/dL (8.6-10.3); Carbon Dioxide 23 mEq/L (23-29); Chloride 106 mEq/L (98-107); Glucose 94 mg/dL (70-105); Osmolality,Calculated 283 (280-300); Potassium 3.7 mEq/L (3.5-5.1); Sodium 137 mEq/L (136-145); eGFR For African Americans > 60 (> 60); eGFR For Non-African Americans > 60 (> 60)
[2019-06-11 08:18] LABS: Magnesium 1.8 mg/dL (1.6-2.6)
[2019-06-11] MEDS: cefTRIAXone 1,000 MG in Water for inj. (sterile) 10 ML IVPB SCH (08:26)
[2019-06-11] MEDS: BuPROPion XL (24 HR) 150 MG TABLET PO SCH (08:26)
[2019-06-11] MEDS: Nicotine 14 MG PATCH.TD24 TD SCH (08:27)
--- NOTE | 2019-06-11 11:32 | Discharge Summary ---
Orders not resulted at time of discharge: Pending orders 06/08/19 18:57 Culture,Blood [BC] Stat Date of Encounter: 06/11/19 Time of Encounter: 11:29 - Discharge Diagnosis (1) Pyelonephritis Priority: Primary Status: Suspected (2) Substance use disorder Priority: Secondary Status: Chronic (3) Depression Priority: Secondary Status: Chronic Qualifiers: Depression Type: other depression Qualified Code(s): F32.89 - Other specifi ed depressive episodes (4) Cholelithiasis Priority: Secondary Status: Chronic Qualifiers: Cholelithiasis location: other site Biliary obstruction: without biliary obstruction Qualified Code(s): K80.80 - Other cholelithiasis without obstruction (5) Hypokalemia Priority: Secondary Status: Resolved (6) UTI (urinary tract infection) Priority: Primary Status: Acute Qualifiers: Urinary tract infection type: acute cystitis Hematuria presence: without hematuria Qualified Code(s): N30.00 - Acute cystitis without hematuria (7) Sepsis Priority: Secondary Status: Ruled-out Qualifiers: Sepsis type: sepsis due to unspecified organism Sepsis acute organ dysfunction status: unspecified Qualified Code(s): A41.9 - Sepsis, unspecified organism Hospital course: Ms. Henriquez is a 34 year old female history of opiate dependence currently on Suboxone as well as mood disorder who presents emergency room complaining of 3 days of chills, subjective fever, lower abdominal pain and lower back pain accompanied by nausea, vomiting and severe dysuria. Abdomen CT showed stranding along the margins of the right kidney without hydronephrosis. Patient was admitted to the hospital due to urinary tract infection, suspected pyelonephritis. Patient was managed with broad-spectrum IV antibiotics and IV hydration. Urine culture grew: Pansensitive Escherichia coli. Blood cultures: No growth today. Patient was placed on Oxycodone 10mg/po Q6HR PRN for pain control from 05/08/19 to 05/11/19 and received a total of 4 doses. - Time Spent with Patient Total time spent providing and/or coordinating discharge services: Time spent: Greater than 30 minutes (35) - Discharge Medications Prescriptions: New levoFLOXacin [Levofloxacin] 750 mg PO DAILY 5 Days #5 tablet Continued Paroxetine HCl [Paxil] 40 mg PO DAILY Bupropion HCl [Wellbutrin Xl] 300 mg PO DAILY Buprenorphine HCl/Naloxone HCl [Buprenorphin-Naloxon 8-2 mg Sl] 2 tab SL DAILY Home Medications: Bupropion HCl [Wellbutrin Xl] 300 mg PO DAILY 06/08/19 [History] Paroxetine HCl [Paxil] 40 mg PO DAILY 06/08/19 [History] Buprenorphine HCl/Naloxone HCl [Buprenorphin-Naloxon 8-2 mg Sl] 2 tab SL DAILY 06/09/19 [History] levoFLOXacin [Levofloxacin] 750 mg PO DAILY 5 Days #5 tablet 06/11/19 [Rx] Allergies/Adverse Reactions: Allergy/AdvReac Type Severity Reaction Status Date / Time No Known Allergies Allergy Verified 06/09/19 13:40 Date of admission: 06/08/19 22:43 Primary care physician: PCP NONE - Constitutional Vitals: Temp Pulse Resp BP Pulse Ox 98.2 F 74 18 114/76 96 06/11/19 07:07 06/11/19 07:07 06/11/19 07:07 06/11/19 07:07 06/11/19 07:07 Exam: Vitals: Reviewed General: Alert and oriented x4. In no distress Skin: Normal color, no rash, no lesions. HEENT: EOM, pupils equal, round and reactive. Cardiovascular: RRR, normal S1 & S2, no rubs, murmurs or gallops. Lungs: CTA b/l, no wheezes or crackles. Abdomen: Soft, non-tender, no rigidity. Extremities: No edema Neurological: Normal cognition and motor skills. Rest of the physical exam is non contributory - Patient Status Disposition: Home, Self-Care Condition: Good Functional capacity at discharge: independent ambulation Overall status at discharge: patient is back to baseline - Discharge Instructions Follow Up With: Nicola Shaver MD [Non-Partnered Physician] - (Office is closed at this time. Patient will call office to schedule hospital f/u. Thank you) Forms: ED Satisfaction Letter, Work/School Release Additional Instructions: Urine culture grew: Pansensitive Escherichia coli. Blood cultures: No growth today. Patient was placed on Oxycodone 10mg/po Q6HR PRN for pain control from 05/08/19 to 05/11/19 and received a total of 4 doses. - Diet and Activity Activity: resume usual activities as tolerated Diet: advance to your usual diet
[2019-06-11] MEDS: traMADol 50 MG TABLET PO PRN (11:51)
== END 2019-06-11 12:34 | disposition home or self-care (01) ==
LOC: EMEROOARM 18:31 → 3ANU 18:31 → SUATTDRO 22:43 → 3ANU 23:09
PROVIDERS: ADMIT Internal Medicine; ATTEND Internal Medicine

== ENCOUNTER 2021-02-09 14:02 | Observation (INO) ==
[2021-02-09] MEDS ORDERED: Ondansetron 4 MG/2 ML VIAL IVP ONE (14:18)
[2021-02-09] MEDS ORDERED: 0.9 % Sodium Chloride 1,000 ML IVC ONE ×2 (14:18→17:10)
[2021-02-09 14:49] LABS: Hematocrit 42.9 % (35.3-44.9); Hemoglobin 14.2 g/dL (11.5-15.4); Immature Platelets 5.5 % (1.1-6.1); Mean Corpuscular HGB Conc 33.1 g/dL (31.6-35.5); Mean Corpuscular Hemoglobin 31.8 pg (28.0-33.3); Mean Platelet Volume 10.5 fL (9.4-12.4); Red Blood Count 4.47 M/mcL (3.82-4.97); Red Cell Distribution Width 11.8 % (11.5-14.5)
[2021-02-09] MEDS ORDERED: cefTRIAXone 1,000 MG in Water for inj. (sterile) 10 ML IVP ONE (14:55)
[2021-02-09 15:10] LABS: BUN/Creatinine Ratio 16 (6-26); Blood Urea Nitrogen 11 mg/dL (6-20); Carbon Dioxide 25 mEq/L (23-29); Chloride 102 mEq/L (98-107); Glucose 111 mg/dL (70-105); Osmolality,Calculated 280 (280-300); Potassium 3.4 mEq/L (3.5-5.1); Sodium 135 mEq/L (136-145); eGFR For African Americans > 60 (> 60); eGFR For Non-African Americans > 60 (> 60)
[2021-02-09 15:21] LABS: Bacteria,Urine Moderate per hpf (None-Few); Bilirubin,Urine Negative (Negative); Blood,Urine Moderate (Negative); Clarity,Urine Ex.Turbid (Clear); Color,Urine Yellow (Yellow); Glucose,Urine (UA) Normal (Normal); Hyaline Casts,Urine Moderate per lpf (None Seen); Ketones,Urine Negative (Negative); Leukocyte Esterase,Urine Large (Negative); Mucus,Urine Few per lpf (None-Few); Nitrite,Urine Positive (Negative); Protein,Urine 100 mg/dL (Neg-Trace); Renal Epithelial Cells,Urine Few per hpf (None-Few); Specific Gravity,Urine 1.014 (1.010-1.025); Urobilinogen,Urine Normal (Normal); WBC,Urine TNTC per hpf (0-3)
[2021-02-09] MEDS ORDERED: Isovue-370 500 ML BOTTLE IVP ONE (15:34)
[2021-02-09] MEDS ORDERED: Naloxone 0.4 MG/ML INJ IVP PRN (17:22)
[2021-02-09] MEDS ORDERED: Ondansetron 4 MG/2 ML VIAL IVP PRN (17:22)
[2021-02-09] MEDS: *HR* HYDROcodone/Acet 5/325 mg TABLET PO PRN (22:16)
[2021-02-09] MEDS: 0.9 % Sodium Chloride 1,000 ML IVC SCH (22:24)
[2021-02-10 02:45] LABS: Basophils % 0.3 %; Eosinophils # 0.1 K/mcL (0.0-0.6); Eosinophils % 1.3 %; Hematocrit 39.3 % (35.3-44.9); Hemoglobin 12.7 g/dL (11.5-15.4); Immature Granulocytes % 0.2 % (0-4); Immature Platelets 5.7 % (1.1-6.1); Lymphocytes # 1.2 K/mcL (0.6-4.6); Lymphocytes % 18.3 %; Mean Corpuscular HGB Conc 32.3 g/dL (31.6-35.5); Mean Corpuscular Hemoglobin 31.8 pg (28.0-33.3); Mean Corpuscular Volume 98.3 fL (83.0-100.0); Monocytes # 0.8 K/mcL (0.0-1.3); Monocytes % 11.9 %; Neutrophils # 4.3 K/mcL (1.6-8.9); Platelet Count 106 K/mcL (140-400); Red Cell Distribution Width 11.7 % (11.5-14.5); White Blood Count 6.3 K/mcL (4.3-11.1)
[2021-02-10 02:48] LABS: INR 1.1; Prothrombin Time 12.8 Seconds (9.4-12.1)
[2021-02-10 02:51] LABS: Activated Partial Thrombo Time 24.8 Seconds (26.0-36.0)
[2021-02-10 02:57] LABS: BUN/Creatinine Ratio 20 (6-26); Blood Urea Nitrogen 11 mg/dL (6-20); Calcium 7.9 mg/dL (8.6-10.3); Carbon Dioxide 24 mEq/L (23-29); Chloride 108 mEq/L (98-107); Glucose 94 mg/dL (70-105); Magnesium 1.8 mg/dL (1.6-2.6); Osmolality,Calculated 285 (280-300); Phosphorous 2.3 mg/dL (2.7-4.5); Potassium 3.5 mEq/L (3.5-5.1); Sodium 138 mEq/L (136-145); eGFR For African Americans > 60 (> 60); eGFR For Non-African Americans > 60 (> 60)
[2021-02-10] MEDS: *HR* HYDROcodone/Acet 5/325 mg TABLET PO PRN ×2 (05:10→15:00)
[2021-02-10] MEDS: *HR* Enoxaparin 40 MG/0.4 ML SYRINGE SQ SCH (05:12)
[2021-02-10] MEDS: 0.9 % Sodium Chloride 1,000 ML IVC SCH (08:22)
[2021-02-10] MEDS: cefTRIAXone 1,000 MG in Water for inj. (sterile) 10 ML IVP SCH (08:22)
[2021-02-10] MEDS: Nicotine 21 MG PATCH.TD24 TD SCH (12:05)
[2021-02-10] MEDS ORDERED: NON-FORMULARY MEDICATION 1 EACH EACH (Ascorbic Acid/Vitamin E/Biotin [Hair Skin Nails-Biot PO SCH (12:15)
[2021-02-10] MEDS ORDERED: NALOXONE HCL SL SCH (12:30)
[2021-02-10] MEDS ORDERED: AMPHETAMINE PO SCH (12:30)
[2021-02-10] MEDS ORDERED: BUPRENORPHINE HCL SL SCH (12:30)
[2021-02-10] MEDS ORDERED: DEXTROAMPHETAMINE PO SCH (12:30)
[2021-02-10] MEDS: BuPROPion XL (24 HR) 150 MG TABLET PO SCH (12:38)
[2021-02-10] MEDS ORDERED: *HR* Buprenorphine HCl 8 MG TAB.SUBL SL SCH (16:15)
[2021-02-10] MEDS: *HR* Buprenorphine HCl 8 MG TAB.SUBL SL SCH (16:20)
[2021-02-11] MEDS: *HR* Enoxaparin 40 MG/0.4 ML SYRINGE SQ SCH (05:13)
[2021-02-11 06:04] LABS: Immature Granulocytes % 0.2 % (0-4); Red Cell Distribution Width 11.5 % (11.5-14.5)
[2021-02-11 06:06] LABS: Basophils % 0.3 %; Eosinophils # 0.2 K/mcL (0.0-0.6); Eosinophils % 3.1 %; Hematocrit 41.7 % (35.3-44.9); Hemoglobin 13.7 g/dL (11.5-15.4); Immature Platelets 6.1 % (1.1-6.1); Lymphocytes # 1.5 K/mcL (0.6-4.6); Lymphocytes % 24.9 %; Mean Corpuscular HGB Conc 32.9 g/dL (31.6-35.5); Mean Corpuscular Hemoglobin 31.6 pg (28.0-33.3); Mean Corpuscular Volume 96.1 fL (83.0-100.0); Monocytes # 0.8 K/mcL (0.0-1.3); Monocytes % 12.5 %; Neutrophils # 3.6 K/mcL (1.6-8.9); Platelet Count 129 K/mcL (140-400); Red Blood Count 4.34 M/mcL (3.82-4.97); White Blood Count 6.1 K/mcL (4.3-11.1)
[2021-02-11 06:34] LABS: BUN/Creatinine Ratio 13 (6-26); Blood Urea Nitrogen 7 mg/dL (6-20); Carbon Dioxide 27 mEq/L (23-29); Chloride 105 mEq/L (98-107); Glucose 87 mg/dL (70-105); Magnesium 1.9 mg/dL (1.6-2.6); Osmolality,Calculated 283 (280-300); Potassium 3.7 mEq/L (3.5-5.1); Sodium 138 mEq/L (136-145); eGFR For African Americans > 60 (> 60); eGFR For Non-African Americans > 60 (> 60)
[2021-02-11 07:50] VITALS: BP 106/74
[2021-02-11] MEDS: cefTRIAXone 1,000 MG in Water for inj. (sterile) 10 ML IVP SCH (09:11)
[2021-02-11] MEDS: BuPROPion XL (24 HR) 150 MG TABLET PO SCH (09:11)
[2021-02-11] MEDS: Nicotine 21 MG PATCH.TD24 TD SCH (09:11)
[2021-02-11] MEDS: *HR* Buprenorphine HCl 8 MG TAB.SUBL SL SCH (09:11)
== END 2021-02-11 12:59 | disposition home or self-care (01) ==
LOC: 2NENU 14:02 → EMEROOARM 14:02 → SUATTDRO 17:44 → 2NENU 19:04
PROVIDERS: ADMIT Internal Medicine; ATTEND Student in an Organized Health Care Education/Training Program